=== PATIENT | male | born 1965 | race Caucasian/White ===

== ENCOUNTER 2025-01-31 18:23 | Emergency (ER) | payer OTHER, SELFPAY ==
--- OUTSIDE RECORDS SUMMARY | 2025-01-31 18:25 | XMS_ITS | Clinical Summary ---
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 Immunizations Immunization Administration Dates Next Due Influenza, Quadrivalent, Eliza l Culture-based MDCK, Preservative Free, Antibiotic Free, Intramuscular 10/11/2022 Family History Medical History Relation Name Comments Stroke Brother Stroke Mother Relation Name Status Comments Brother Mother Social History Tobacco Use Types Packs/Day Years Used Date Smoking Tobacco: Never Smokeless Tobacco: Never Tobacco Cessation:Counseling Given: Not Answered Personal Safety Answer Date Recorded Getting School Help Needed Not on file 10/26 Sex and Gender Information Value Date Recorded Sex Assigned at Not on file Legal Sex Male 9:47 AM CDT Gender Identity Not on file Sexual Orientation Not on file Obstetrics History Last Filed Vital Signs Vital Sign Reading Time Taken Comments Blood Pressure 163/94 10/11/2022 12:50 PM UNCRATER Pulse 76 10/11/2022 12:50 PM UNCRATER Temperature 36.7 C (98.1 F) 10/11/2022 12:50 PM UNCRATER Respiratory Rate 18 10/11/2022 12:50 PM UNCRATER Oxygen Saturation 97% 10/11/2022 12:50 PM UNCRATER Inhaled Oxygen Concentration - - Weight 108.9 kg (240 lb) 10/11/2022 12:50 PM UNCRATER Height 175.3 cm (5' 9 ) 10/11/2022 12:50 PM UNCRATER Body Mass Index 35.44 10/11/2022 12:50 PM UNCRATER Plan of Treatment Health Maintenance Due Date Last Done Comments Colon Cancer Screening-Colonoscopy 1964 Depression Screening 1964 Hepatitis C Screening 1964 Prostate Cancer Screening-PSA 1964 DTaP/Tdap/Td Vaccine (1 - Tdap) 1975 Hepatitis B Screening 1982 Regular Well Visit/Exam 18-64 1982 Zoster Vaccine (1 of 2) 2014 Influenza Vaccine (Season Ended) 2025 10/11/20 22 Pneumococcal vaccine <65 Aged Out No longer eligible based on patient's age to [place] [address] [place] [address] [email or web address] Care Teams Head Sulfide Operator Relationship Specialty Start Date End Date No, Physician PCP - General 10/01/22
--- OUTSIDE RECORDS SUMMARY | 2025-01-31 18:25 | XMS_ITS | Referral Summary ---
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 Immunizations Immunization Administration Dates Next Due Influenza, Quadrivalent, Eliza l Culture-based MDCK, Preservative Free, Antibiotic Free, Intramuscular 10/11/2022 Social History Tobacco Use Types Packs/Day Years Used Date Smoking Tobacco: Never Smokeless Tobacco: Never Tobacco Cessation:Counseling Given: Not Answered Personal Safety Answer Date Recorded Getting School Help Needed Not on file 10/26 Sex and Gender Information Value Date Recorded Sex Assigned at Not on file Legal Sex Male 9:47 AM CDT Gender Identity Not on file Sexual Orientation Not on file Last Filed Vital Signs Vital Sign Reading Time Taken Comments Blood Pressure 163/94 10/11/2022 12:50 PM LIBRARY HISTORIAN Pulse 76 10/11/2022 12:50 PM LIBRARY HISTORIAN Temperature 36.7 C (98.1 F) 10/11/2022 12:50 PM LIBRARY HISTORIAN Respiratory Rate 18 10/11/2022 12:50 PM LIBRARY HISTORIAN Oxygen Saturation 97% 10/11/2022 12:50 PM LIBRARY HISTORIAN Inhaled Oxygen Concentration - - Weight 108.9 kg (240 lb) 10/11/2022 12:50 PM LIBRARY HISTORIAN Height 175.3 cm (5' 9 ) 10/11/2022 12:50 PM LIBRARY HISTORIAN Body Mass Index 35.44 10/11/2022 12:50 PM LIBRARY HISTORIAN Plan of Treatment Not on file Insurance CIGNA CIGNA Care Teams Pe Manager Relationship Specialty Start Date End Date No, Physician PCP - General 10/01/22
--- OUTSIDE RECORDS SUMMARY | 2025-01-31 18:25 | XMS_ITS ---
Author Organization [facility] Address [address] [address] Care Team Providers Care Photolith Operator Name Role Phone Isha LÓPEZ, Claudio Primary Care Provider Mattie VASQUEZ, Allyson Unavailable [phone] ALLERGIES Allergen (clinical drug ingredient) Drug/Non Drug Allergy documented on EMR Reaction Allergy Type Onset Date Status guaifenesin Mucinex Hives, anaphylac tic shock Drug Allergy Active Bee venom (uncoded) Hives, anaphylactic shock Allergy Active REASON FOR VISIT left knee SOCIAL HISTORY Tobacco Use: Social History Observation Description Date Details (start date - stop date) Never Smoker NA - NA Sex Assigned At : Social History Observation Description Sex Assigned At Unknown Tobacco Use: Question Answer Notes Patient is a: nonsmoker Alcohol screening: Question Answer Notes Did you have a drink containing alcohol in the p ast year? No Points 0 Interpretation Negative VITAL SIGNS Blood pressure systolic 141 mm Hg 03/29/20 24 Blood pressure diastolic 73 mm Hg 024 Heart Rate 70 /min 03/29/2024 Height 72 in 03/29/2024 Weight 235 lbs 03/29/2024 BMI 31.87 kg/m2 03/29/2024 Encounters Encounter Location Date Provider Diagnosis [facility] [address] [address] 03/29/2024 Allyson VASQUEZ Encounter for orthopedic follow-up care Z47.89 ; Other tear of medial meniscus, current injury, left knee, subsequent encounter S83.242D ; Other tear of lateral meniscus, current injury, left knee, subsequent encounter S83.282D and Encounter for removal of sutures Z48.02 ASSESSMENTS Encounter Date Diagnosis Assessment Notes Treatment Notes Treatment Clinical Notes 03/29/2024 Encounter for orthopedic follow-up care (ICD-10 - Z47.89) 03/29/2024 Other tear of medial meniscus, current injury, left knee, subsequent encounter (ICD-10 - S83.242D) 03/29/2024 Other tear of lateral meniscus, current injury, left knee, subsequent encounter (ICD-10 - S83.282D) 03/29/2024 Encounter for removal of sutures (ICD-10 - Z48.02) PLAN OF TREATMENT No Information History and Physical Notes * HPI (History of Present Illness) Category Sub-Category Detail Notes Depression Screening PHQ-2 (2015 Edition) Little interest or pleasure in doing things?: Not at all Feeling down, depressed, or hopeless?: N ot at all Total Score: 0
--- OUTSIDE RECORDS SUMMARY | 2025-01-31 18:25 | XMS_ITS | CONTINUITY OF CARE DOCUMENT ---
Author Name shirley watson Address Unknown Organization [facility] Address [address] [place] [address] [address] [place] [address] Phone [phone] Care Team Providers Care Produce Assistant Name Role Phone Addi Shannon MD Unavailable [phone] Addi Shannon MD Unavailable [phone] PROBLEMS Condition Status Date Provider Notes Cardiology examination active Addi Lemus COVID-19 active Addi Shannon MD SOB active Addi Shannon MD Obesity active Addi Shannon MD Leg numbness, right active Addi Shannon MD Pulmonary embolism active Addi Shannon MD Aortic stenosis, mild active Sanjuana chester ENCOUNTERS Date Type Provider Location Encounter Diag nosis - In-person encounter Office Visit Addi Shannon MD [facility] - In-person encounter Office Visit Addi Shannon MD [facility] Aortic stenosis, mild - In-person encounter Office Visit Addi Shannon MD [facility] Cardiology [id number] ObesityLeg numbness, rightPulmonary embolism VITAL SIGNS Date Observation Value Provider Body Mass Index (Ratio) 31.60 kg/m2 Mae Briggs blood pressure, diastolic 91 mm[Hg] St david Vargas blood pressure, systolic 144 mm[Hg] Tish Vargas oxygen saturation, oximetry 96 % Addis Vargas pulse rate 73 /min Addis Vargas respiratory rate E&M 18 /min Addis Mariah conley weight E&M 233 [lb_av] Addis Vargas height E&M 72 [in_i] Addis Vargas Body Mass Index (Ratio) 32.55 kg/m2 Ana Laura Arroyo blood pressure, diastolic 90 mm[Hg] Ri bryant Pratt blood pressure, systolic 137 mm[Hg] Christopher robb Pratt blood pressure, cuff size large Concepcion Pratt oxygen saturation, oximetry 93 % Marcia Pratt respiratory rate E&M 16 /min Chula Pratt pulse rate 83 /min Marcia partida weight E&M 240 [lb_av] Marcia Garcia son height E&M 72 [in_i] Marcia Garcia son Body Mass Index (Ratio) 32.95 kg/m2 Ana Laura Arroyo blood pressure, cuff size large Ke asael Gonsales blood pressure, diastolic 66 mm[Hg] Ke rrdebora Carrionueneyielder blood pressure, systolic 126 mm[Hg] Angelica concepcion Navaer oxygen saturation, oximetry 97 % Claire Navaer respiratory rate E&M 16 /min Claire coxer pulse rate 82 /min Claire Heartnfe lder weight E&M 243 [lb_av] Claire Andersone lder height E&M 72 [in_i] Claire Skyenenfe lder RESULTS Date Observation Value Provider Reference Range Interpretation Location NT-pro BNP 29 [employer] Normal cholesterol, non-HDL, total 190 MG/DL ([facility]) [facility] <130 High cholesterol/HDL ratio, serum, percent 5.9 (calc) [facility] <5.0 High LDL cholesterol, serum 152 MG/DL ([facility]) [facility] High triglyceride, serum, fasting 212 mg/dL [facility] <150 High HDL cholesterol, serum 39 mg/dL [facility] > OR = 40 Low cholesterol, serum 229 mg/dL [facility] <200 High creatinine, serum 1.05 mg/dL [facility] 0.70-1.30 Norm al HISTORY OF MEDICATION USE Medication Status Instructions Dates Provider Indications Com ments Crestor 20 mg tablet active Take 1 tablet by mouth once a day Addi Shannon MD SOCIAL HISTORY Date Observation Value Provider social history E&M S moking History: Bobby hammer has never smoked. Rosanne Chester social history reviewed E&M revi ewed - no changes required Rosanne Briggs smoking status Never smoker Addis Sam social history E&M S moking History: Bobby hammer has never smoked. Addi Shannon MD social history reviewed E&M revi ewed - no changes required Addi Shannon MD smoking status Never smoker Marcia Martha hernandezlemuel social history E&M S moking History: Bobby hammer has never smoked. Addi Shannon MD social history reviewed E&M revi ewed - no changes required Addi Shannon MD smoking status Never smoker Claire gillespie INSURANCE PROVIDERS Payer name Policy type / Coverage type [employer] [place] [employer] ID CIGNA [employer] [id number] ADVANCE DIRECTIVES Name Date DISCUSSED - NO DECISION MADE TREATMENT PLAN Date Name Performer [id number],S,L DL is markedly elevated and we will start crestor 20 mg daily. He still has SOB. Will obtain a stress cardiolite study. Rosanne Chualonny [id number],S,V Q scan was normal. CT angiography was negative for PE but showed interstitial marking in the right lung. Rosanne Briggs [id number],C, W eight loss advised [place] Torresaljessica [id number],C,E cho showed normal LVEF, mild aortic stenosis with calcifications and normal RV. Venous duplex was negative for DVT. PA CT angio results are pending. [place] Navaljessica [id number],S, [place] Na valta [id number],C,E cho showed normal LVEF, mild aortic stenosis with calcifications and normal RV. Venous duplex was negative for DVT. PA CT angio results are pending. Will obtain a fasting lipid panel, I recommend to keep LDL at [address] or less[address] If the CT is negative, we'll consider a Vicu scan. Addi Shannon MD [id number],C,T he pt had Covid in Jul 2021, was hospitalized for 40 days in [facility] (he was told he needed intubation but refused). He was diagnosed with PE and treated with Eliquis until Nov 2021. He complains of SOB with minimal exertion, no CP. Also numbness in the right foot. In addition CT showed coronary calcifications. He has appointment with health claims examiner at [facility] for PFTs. Will obtain pulmonary angio (PE protocol), echo, arterial duplex, and venous duplex. Sanjuana Mendezdaina [id number],C,W eight loss advised Sanjuana Rodriguezalvaro [id number],C, Also numbness in the right foot.Will obtain pulmonary angio (PE protocol), echo, arterial duplex, and venous duplex. Sanjuanasusanna Mendezdaina [id number],C,T he pt had Covid in Jul 2021, was hospitalized for 40 days in [facility] (he was told he needed intubation but refused). He was diagnosed with PE and treated with Eliquis until Nov 2021. He complains of SOB with minimal exertion, no CP. Also numbness in the right foot. In addition CT showed coronary calcifications. He has appointment with health claims examiner at [facility] for PFTs. Will obtain pulmonary angio (PE protocol), echo, arterial duplex, and venous duplex. Sanjuana Arroyo Cardiology:LDL is ma rkedly elevated and we will start crestor 20 mg daily. He still has SOB. Will obtain a stress cardiolite study. Rosanne Briggs Cardiology:VQ scan w as normal. CT angiography was negative for PE but showed interstitial marking in the right lung. Rosanne Briggs Cardiology: W eight loss advised [place] Torresalta Cardiology:Echo show ed normal LVEF, mild aortic stenosis with calcifications and normal RV. Venous duplex was negative for DVT. PA CT angio results are pending. [place] Navalta Cardiology [place] Navalt a Cardiology:Echo show ed normal LVEF, mild aortic stenosis with calcifications and normal RV. Venous duplex was negative for DVT. PA CT angio results are pending. Will obtain a fasting lipid panel, I recommend to keep LDL at [address] or [address] If the CT is negative, we'll consider a Vicu scan. Addi Shannon MD Cardiology:The pt yareli Davison in Jul 2021, was hospitalized for 40 days in [facility] (he was told he needed intubation but refused). He was diagnosed with PE and treated with Eliquis until Nov 2021. He complains of SOB with minimal exertion, no CP. Also numbness in the right foot. In addition CT showed coronary calcifications. He has appointment with health claims examiner at [facility] for PFTs. Will obtain pulmonary angio (PE protocol), echo, arterial duplex, and venous duplex. Sanjuana Arroyo Cardiology:Weight lo ss advised Sanjuana Arroyo Cardiology: Also num bness in the right foot.Will obtain pulmonary angio (PE protocol), echo, arterial duplex, and venous duplex. Sanjuana Arroyo Cardiology:The pt yareli Davison in Jul 2021, was hospitalized for 40 days in [facility] (he was told he needed intubation but refused). He was diagnosed with PE and treated with Eliquis until Nov 2021. He complains of SOB with minimal exertion, no CP. Also numbness in the right foot. In addition CT showed coronary calcifications. He has appointment with health claims examiner at [facility] for PFTs. Will obtain pulmonary angio (PE protocol), echo, arterial duplex, and venous duplex. Sanjuana Arroyo Date Name Stress Exercise Card iolite PROBNP, N TERMINAL LIPID PANEL Creatinine, Serum CT Angio Chest (PE P rotocol) Arterial Duplex Bi-L ower EX Venous Doppler Bilat eral LE - Reflux Complete Echo HISTORY OF PROCEDURES Procedure Date Procedure Name Provider Procedure Notes S jacksonus EKG Addi Shannon MD completed
--- OUTSIDE RECORDS SUMMARY | 2025-01-31 18:25 | XMS_ITS ---
Author Organization [email or web address] Address [address] [address] Care Team Providers Care Customer Care Team Coach Name Role Phone Isha LÓPEZ, Claudio Primary Care Provider ALLERGIES Allergen (clinical drug ingredient) Drug/Non Drug Allergy documented on EMR Reaction Allergy Type Onset Date Status guaifenesin Mucinex Hives, anaphylac tic shock Drug Allergy Active Bee venom (uncoded) Hives, anaphylactic shock Allergy Active REASON FOR VISIT lt knee SOCIAL HISTORY Tobacco Use: Social History [...] ast year? No Points 0 Interpretation Negative PROBLEMS Problem Type ICD Code Onset Dates Problem Status W/U Status Risk SNOMED Code Notes Problem Localized osteoarthritis of left knee (M17.12) Active confirmed [id number] VITAL SIGNS Height 72 in 06/11/2024 Weight 235 lbs 06/11/2024 BMI 31.87 kg/m2 06/11/2024 Encounters Encounter Location Date Provider Diagnosis [email or web address] [address] [address] 06/11/2024 Claudio Vieira MD Localized osteoarthritis of left knee M17.12 ASSESSMENTS Encounter Date Diagnosis Assessment Notes Treatment Notes Treatment Clinical Notes 06/11/2024 Localized osteoarthritis of left knee (ICD-10 - M17.12) PLAN OF TREATMENT No Information History and Physical Notes * HPI (History of Present Illness) Category Sub-Category Detail Notes Depression Screening PHQ-2 (2015 Edition) Little interest or pleasure in doing things?: Not at all Feeling down, depressed, or hopeless?: N ot at all Total Score: 0
--- OUTSIDE RECORDS SUMMARY | 2025-01-31 18:26 | XMS_ITS ---
Author Organization [facility] Address [address] [facility] [place] [address] Care Team Providers Care Plate Mill Hand Name Role Phone Isha LÓPEZ, Claudio Primary Care Provider Mattie VASQUEZ, Allyson Unavailable [phone] ALLERGIES Allergen (clinical drug ingredient) Drug/Non Drug Allergy documented on EMR Reaction Allergy Type Onset Date Status guaifenesin Mucinex Hives, anaphylac tic shock Drug Allergy Active Bee venom (uncoded) Hives, anaphylactic shock Allergy Active SOCIAL HISTORY Tobacco Use: Social History Observation Description Date Details (start date - stop date) Never Smoker NA - NA Sex Assigned At : Social History Observation Description Sex Assigned At Unknown Tobacco Use: Question Answer Notes Patient is a: nonsmoker Alcohol screening: Question Answer Notes Did you have a drink containing alcohol in the p ast year? No Points 0 Interpretation Negative Encounters Encounter Location Date Provider Diagnosis [facility] [address] [address] 03/19/2024 Allyson VASQUEZ PLAN OF TREATMENT No Information History and Physical Notes * HPI (History of Present Illness) Category Sub-Category Detail Notes Depression Screening PHQ-2 (2015 Edition) Little interest or pleasure in doing things?: Not at all Feeling down, depressed, or hopeless?: N ot at all Total Score: 0
[2025-01-31 18:29] VITALS: BP 119/79; PULSE 58; RESP 18; TEMP 37.2; O2SAT 95
[2025-01-31 18:59] VITALS: O2SAT 95
[2025-01-31] MEDS: EPINEPHrine HCL INJ 1 MG/ML AMPUL 0.3 MG IM (19:12)
--- OUTSIDE RECORDS SUMMARY | 2025-01-31 19:21 | XMS_ITS | Clinical Summary ---
Author Organization [facility] Address [address] [place] [address] Care Team Providers Care Retail Gift Card Merchandising Name Role Phone No, Physician Primary Care Provider [phone] Allergies Active Allergy Reactions Criticality Noted Date Comments Guaifenesin Hives,Shortness of breath High Medications No known medications Active Problems Problem Noted Date Diagnosed Date Dyspnea 10/18/2022 [id number] syndrome manifesting as chronic dy spnea Immunizations [...] Comments Blood Pressure 163/94 10/11/2022 12:50 PM OSD CLERK Pulse 76 10/11/2022 12:50 PM OSD CLERK Temperature 36.7 C (98.1 F) 10/11/2022 12:50 PM OSD CLERK Respiratory Rate 18 10/11/2022 12:50 PM OSD CLERK Oxygen Saturation 97% 10/11/2022 12:50 PM OSD CLERK Inhaled Oxygen Concentration - - Weight 108.9 kg (240 lb) 10/11/2022 12:50 PM OSD CLERK Height 175.3 cm (5' 9 ) 10/11/2022 12:50 PM OSD CLERK Body Mass Index 35.44 10/11/2022 12:50 PM OSD CLERK Plan of Treatment Health Maintenance Due Date [...] patient's age to complete [place] [address] [place] [address] [employer] Care Teams Retail Gift Card Merchandising Relationship Specialty Start Date End Date No, Physician PCP - General 10/01/22
--- OUTSIDE RECORDS SUMMARY | 2025-01-31 19:21 | XMS_ITS | Referral Summary ---
Author Organization [facility] Address [address] [place] [address] Care Team Providers Care Automotive Parts Advisor Name Role Phone No, Physician Primary Care Provider [phone] Allergies Active Allergy Reactions Criticality Noted Date Comments Guaifenesin Hives,Shortness of breath High Medications No known medications Active Problems Problem Noted Date Diagnosed Date Dyspnea 10/18/2022 [id number] syndrome manifesting as chronic dy spnea Immunizations [...] Comments Blood Pressure 163/94 10/11/2022 12:50 PM POTATO PEELING MACHINE OPERATOR Pulse 76 10/11/2022 12:50 PM POTATO PEELING MACHINE OPERATOR Temperature 36.7 C (98.1 F) 10/11/2022 12:50 PM POTATO PEELING MACHINE OPERATOR Respiratory Rate 18 10/11/2022 12:50 PM POTATO PEELING MACHINE OPERATOR Oxygen Saturation 97% 10/11/2022 12:50 PM POTATO PEELING MACHINE OPERATOR Inhaled Oxygen Concentration - - Weight 108.9 kg (240 lb) 10/11/2022 12:50 PM POTATO PEELING MACHINE OPERATOR Height 175.3 cm (5' 9 ) 10/11/2022 12:50 PM POTATO PEELING MACHINE OPERATOR Body Mass Index 35.44 10/11/2022 12:50 PM POTATO PEELING MACHINE OPERATOR Plan of Treatment Not on file Insurance CIGNA CIGNA Care Teams Automotive Parts Advisor Relationship Specialty Start Date End Date No, Physician PCP - General 10/01/22
--- OUTSIDE RECORDS SUMMARY | 2025-01-31 19:21 | XMS_ITS | Patient Health Record ---
Author Organization [facility] Address [address] [place] [address] Care Team Providers Care Lather Apprentice Name Role Phone Isha LÓPEZ, Claudio Primary Care Provider Mattie VASQUEZ, Allyson Unavailable [phone] ALLERGIES Allergen (clinical drug ingredient) Drug/Non Drug Allergy documented on EMR Reaction Allergy Type Onset Date Status guaifenesin Mucinex Hives, anaphylac tic shock Drug Allergy Active Bee venom (uncoded) Hives, anaphylactic shock Allergy Active RESULTS Component Value Reference Range Notes MRI : Knee, left Reviewed date:02/19/2024 10:51:42 AM Interpretation: Performing Lab: Notes/Report: EKG, BMP Reviewed date:03/03/2024 11:10:28 AM Interpretation: Performing Lab: Notes/Report: REASON FOR REFERRAL No Information SOCIAL HISTORY Tobacco Use: Social History Observation [...] W/U Status Risk SNOMED Code Notes Problem Pain, joint, knee, left (M25.562) 01/13/20 24 Active confirmed [id number] Problem Essential (primary) hypertension (I10) Active confirmed 37212837 Problem Effusion, left knee (M25.462) 01/13/20 24 Active confirmed 982494964842574 Problem Tear of medial meniscus of left knee, current, unspecified tear type, initial encounter (S83.242A) 01/13/20 24 Active confirmed 710169174 Problem Tear of lateral meniscus of left knee, current, unspecified tear type, initial encounter (S83.282A) 01/13/20 24 Active confirmed 695814534 Problem Localized osteoarthritis of left knee (M17.12) Active confirmed 285748170898160 VITAL SIGNS Heart Rate 70 /min 03/29/2024 Blood pressure diastolic 73 mm Hg 03/29/2024 Height 72 in 06/11/2024 Blood pressure systolic 141 mm Hg 03/29/2024 Weight 235 lbs 06/11/2024 BMI 31.87 kg/m2 06/11/2024 Encounters Encounter Location Date Provider Diagnosis [address], [place] [address] 03/19/2024 Allyson VASQUEZ [address] [address] 02/13/2024 Claudio Vieira MD Pain, joint, knee, left M25.562 and Effusion, left knee M25.462 [facility] [address] [place] [address] 03/05/2024 Claudio Vieira MD Tear of medial meniscus of left knee, current, unspecified tear type, initial encounter S83.242A and Tear of lateral meniscus of left knee, current, unspecified tear type, initial encounter S83.282A [address], [place] [address] 03/29/2024 Allyson VASQUEZ Encounter for orthopedic follow-up care Z47.89 ; Other tear of medial meniscus, current injury, left knee, subsequent encounter S83.242D ; Other tear of lateral meniscus, current injury, left knee, subsequent encounter S83.282D and Encounter for removal of sutures Z48.02 [place] [address], [place] [address] 06/11/2024 Claudio Vieira MD Localized osteoarthritis of left knee M17.[address], [place] [address] 02/13/2024 Claudio Vieira MD [facility] [address] [place] [address] 02/19/2024 Claudio Vieira MD [facility] [address] [place] [address] 02/24/2024 Claudio Vieira MD ASSESSMENTS Encounter Date Diagnosis Assessment Notes Treatment Notes Treatment Clinical Notes 02/13/2024 Pain, joint, knee, left (ICD-10 - M25.562) 03/05/2024 Tear of medial meniscus of left knee, current, unspecified tear type, initial encounter (ICD-10 - S83.242A) 03/29/2024 Other tear of medial meniscus, current injury, left knee, subsequent encounter (ICD-10 - S83.242D) 03/29/2024 Encounter for orthopedic follow-up care (ICD-10 - Z47.89) 06/11/2024 Localized osteoarthritis of left knee (ICD-10 - M17.12) 02/13/2024 Effusion, left knee (ICD-10 - M25.462) 03/05/2024 Tear of lateral meniscus of left knee, current, unspecified tear type, initial encounter (ICD-10 - S83.282A) 03/29/2024 Other tear of latera l meniscus, current injury, left knee, subsequent encounter (ICD-10 - S83.282D) 03/29/2024 Encounter for remova l of sutures (ICD-10 - Z48.02) PLAN OF TREATMENT No Information Insurance Providers Payer Name Payer Address Payer Phone Subscriber Number Group Number Insured Name Patient Relationship to Insured Coverage Start Date Coverage End Date [employer] [address] [place] [address] [phone] [id number] Juan Antonio Hunter Self - patient is the insured MEDICAL (GENERAL) HISTORY Medical History History ICD Code High Cholesterol Surgical History Surgery Date(Month/Year) left knee arthroscopy with PMM and PLM ( [employer]) 03/05/24 Appendicectomy 1987 Repair of reducible inguinal hernia 1987 Repair of reducible inguinal hernia 2005
--- OUTSIDE RECORDS SUMMARY | 2025-01-31 19:21 | XMS_ITS | CONTINUITY OF CARE DOCUMENT ---
Author Name shirley watson Address Unknown Organization [facility] Address [address] [place] [address] [address] [place] [address] Phone [phone] Care Team Providers Care Wafer Polishing Worker Name Role Phone Addi Shannon MD Unavailable [phone] Addi Shannon MD Unavailable [phone] PROBLEMS Condition Status Date Provider Notes Cardiology examination active Addi Lemus COVID-19 active Addi Shannon MD SOB active Addi Shannon MD Obesity active Addi Shannon MD Leg numbness, right active Addi Shannon MD Pulmonary embolism active Addi Shannon MD Aortic stenosis, mild active Sanjuana chester ENCOUNTERS Date Type Provider Location Encounter Diag nosis - In-person encounter Office Visit Addi Shannon MD [facility] - In-person encounter Office Visit Addi Shannon MD [facility] Aortic stenosis, mild - In-person encounter Office Visit Addi Shannon MD [facility] Cardiology examinationCOVID-19SOB ObesityLeg numbness, rightPulmonary embolism [...] Payer name Policy type / Coverage type [place] red green party ID [id number] [id number] ADVANCE DIRECTIVES Name Date DISCUSSED - NO DECISION MADE TREATMENT PLAN Date Name Performer [id number],S,L DL is markedly elevated and we will start crestor 20 mg daily. He still has SOB. Will obtain a stress cardiolite study. Rosanne Chualonny [id number],S,V Q scan was normal. CT angiography was negative for PE but showed interstitial marking in the right lung. Rosanne Briggs [id number],C, W eight loss advised [place] Torresaljessica [id number],C,E cho showed normal LVEF, mild aortic stenosis with calcifications and normal RV. Venous duplex was negative for DVT. PA CT angio results are pending. [place] Navaljessica [id number],S, [place] Na valta [id number],C,E cho showed normal LVEF, mild aortic stenosis with calcifications and normal RV. Venous duplex was negative for DVT. PA CT angio results are pending. Will obtain a fasting lipid panel, I recommend to keep LDL at [address] or [address] If the CT is negative, we'll consider a Vicu scan. Addi hSannon MD [id number],C,T he pt had Covid in Jul 2021, was hospitalized for 40 days in [facility] (he was told he needed intubation but refused). He was diagnosed with PE and treated with Eliquis until Nov 2021. He complains of SOB with minimal exertion, no CP. Also numbness in the right foot. In addition CT showed coronary calcifications. He has appointment with customer support executive at [facility] for PFTs. Will obtain pulmonary angio (PE protocol), echo, arterial duplex, and venous duplex. Sanjuana Mendezdaina [id number],C,W eight loss advised Sanjuana Rodriguezalvaro [id number],C, Also numbness in the right foot.Will obtain pulmonary angio (PE protocol), echo, arterial duplex, and venous duplex. Sanjuanasusanna Mendezdaina [id number],C,T he pt had Covid in Jul 2021, was hospitalized for 40 days in [facility] (he was told he needed intubation but refused). He was diagnosed with PE and treated with Eliquis until Nov 2021. He complains of SOB with minimal exertion, no CP. Also numbness in the right foot. In addition CT showed coronary calcifications. He has appointment with customer support executive at [facility] for PFTs. Will obtain pulmonary angio (PE [...] 2021, was hospitalized for 40 days in [facility] (he was told he needed intubation but refused). He was diagnosed with PE and treated with Eliquis until Nov 2021. He complains of SOB with minimal exertion, no CP. Also numbness in the right foot. In addition CT showed coronary calcifications. He has appointment with customer support executive at [facility] for PFTs. Will obtain pulmonary angio (PE protocol), echo, arterial duplex, and venous duplex. Sanjuana Arroyo Cardiology:Weight lo ss advised Sanjuana Arroyo Cardiology: Also num bness in the right foot.Will obtain pulmonary angio (PE protocol), echo, arterial duplex, and venous duplex. Sanjuana Arroyo Cardiology:The pt yareli Davison in Jul 2021, was hospitalized for 40 days in [facility] (he was told he needed intubation but refused). He was diagnosed with PE and treated with Eliquis until Nov 2021. He complains of SOB with minimal exertion, no CP. Also numbness in the right foot. In addition CT showed coronary calcifications. He has appointment with customer support executive at [facility] for PFTs. Will obtain pulmonary angio (PE [...]
[2025-01-31] MEDS: diphenhydrAMINE HCl INJ 50 MG/ML VIAL 25 MG IV PUSH (19:27)
[2025-01-31] MEDS: FAMOTIDINE 20 MG/2 ML VIAL IV PUSH (19:27)
[2025-01-31] MEDS: methylPREDNISolone SOD SUCC 125 MG VIAL IV PUSH (19:27)
[2025-01-31 19:45] VITALS: BP 139/97; PULSE 94; RESP 22; O2SAT 97
[2025-01-31 19:51] VITALS: PULSE 94; O2SAT 97
[2025-01-31 20:14] VITALS: O2SAT 97
--- NOTE | 2025-01-31 20:41 | ED.ALLEREA ---
HPI - Allergic Reaction General Chief complaint: Allergic Reaction Stated complaint: Shortness of breath, +Covid Time Seen by Provider: 01/31/25 19:08 Source: patient Mode of arrival: ambulatory Limitations: no limitations History of Present Illness HPI narrative: 59-year-old otherwise healthy here with the complaints of allergic reaction and rash which started few hours ago while he was walking. He also complained of mild shortness of breath. Denies any chest pain . Not started on any new medication on use new detergent. complaint: allergic reaction Onset (ago): hour(s) (1) Exposure: unknown Symptoms: rash and itching Severity: moderate Previous Allergic Reaction History: none Related Data Allergies Allergy/AdvReac Type Severity Reaction Status Date / Time bee venom protein (honey bee) Allergy Intermediate Unknown Verified 01/31/25 18:25 guaifenesin (From Mucinex) Allergy Intermediate Hives Verified 01/31/25 18:25 Review of Systems Review of Systems: All systems reviewed & are unremarkable except as noted in HPI and below Constitutional: Constitutional: Reports no additional constitutional complaints Eyes: Eyes: Reports no additional eye complaints ENT: Reports system reviewed and no additional complaints, except as documented Cardiovascular: Cardiovascular: Reports no additional cardiovascular complaints Respiratory: Respiratory: Reports no additional respiratory complaints Integumentary/Breasts: Skin/Breast: Reports as per HPI Neurologic: Reports system reviewed and no additional complaints, except as documented PMFSH Past Medical History Medical History Tear of meniscus of left knee History of COVID-19 Social History Social History Smoking status: Never smoker Alcohol intake: current Alcohol use details: beer Substance use: never Current Housing: Decline to Answer Concerned About Future Housing: Decline to Answer Difficulty Paying Gas/Electric Bills: Decline to Answer Difficulty Paying for Meds: Decline to Answer Currently Unemployed: Decline to Answer Education: Decline to Answer Difficulty w/ Childcare or Family Care: Decline to Answer Exam Narrative: GENERAL: Well-appearing, well-nourished, and in no acute distress. HEAD: Normocephalic, atraumatic. EYES: PERRLA and EOMI. ENT: Nares clear, no rhinorrhea or epistaxis. Mucous membranes moist. No sign of angioedema NECK: Supple. CHEST: Clear to auscultation. No respiratory distress. HEART: Regular rate and rhythm. No murmur heard. Normal peripheral pulses. ABDOMEN: Soft, nontender, nondistended, normal active bowel sounds. EXTREMITIES: Normal range of motion. No edema. SKIN: Warm, dry has diffuse hives an erythematous rash NEURO: No focal deficits. Alert and oriented x3. PSYCH: Normal mood and affect. Course Course Emergency Course: Patient started improving up he received epi I did give him Solu-Medrol as well as Benadryl. Observed him in the ER his feeling much better the rash has subsided. Vital Signs Vital signs: Vital Signs Temperature 37.2 C 01/31/25 18:29 Pulse Rate 58 L 01/31/25 18:29 Respiratory Rate 18 01/31/25 18:29 Blood Pressure 119/79 01/31/25 18:29 Pulse Oximetry 95 01/31/25 18:29 Oxygen Delivery Room Air 01/31/25 18:29 Temperature 37.2 C 01/31/25 18:29 Pulse Rate 94 01/31/25 19:51 Respiratory Rate 22 H 01/31/25 19:45 Blood Pressure 139/97 H 01/31/25 19:45 Pulse Oximetry 97 01/31/25 20:14 Oxygen Delivery Room Air 01/31/25 20:14 Oxygen Flow Rate 2 01/31/25 18:59 Discharge Plan Discharge Clinical Impression: Allergic reaction Qualifiers: Encounter type: initial encounter Qualified Code(s): T78.40XA - Allergy, unspecified, initial encounter Patient Disposition: Home Condition: Stable Instructions: Allergies (ED) Patient Language: Ecuadorean Prescriptions: New prednisone 20 mg tablet 20 mg PO BID Qty: 10 0RF No Action Paxlovid 300 mg (150 mg x 2)-100 mg tablets,dose pack See Rx Instructions PO .COMPLEX Qty: 30 0RF Rx Instructions: take TWO 150 mg tablets of nirmatrelvir with ONE 100 mg tablet of ritonavir twice daily for 5 days PO albuterol sulfate [Ventolin HFA] 90 mcg/actuation HFA aerosol inhaler 1 inh inhalation Q4H PRN (Reason: shortness of breath or wheezing) Qty: 25.5 0RF benzonatate 100 mg capsule 100 mg PO TID Qty: 21 0RF Follow-up/Referrals: Geraldo George MD [Primary Care Provider] - Time of Disposition: 20:46
[2025-01-31 21:40] VITALS: BP 147/87; PULSE 93; RESP 24; O2SAT 95
== END 2025-01-31 21:17 | disposition home or self-care (01) ==
PROVIDERS: Emergency Provider Family Medicine; PCP Emergency Medicine
DX: T78.40XA Allergy, unspecified, initial encounter (principal); X58.XXXA Exposure to other specified factors, initial encounter; Z86.16 Personal history of COVID-19
CPT/HCPCS: 99283; J0171; J1200; J2919

== ENCOUNTER 2025-07-26 16:49 | Outpatient (RCR) | payer OTHER, SELFPAY ==
--- NOTE | 2025-08-18 09:23 | OPREHPOC ---
Outpatient Therapy Plan of Care This is a Multidisciplinary Plan of Care that may contain components documented by all disciplines (PT, OT, and ST.) PT Problem 1 PT Problem #1 Knowledge Deficit PT Goal 1 Goal / Goal Update inependent and compliant with HEP Target Visit 5 PT Problem 2 PT Problem #2 Pain PT Goal 1 Goal / Goal Update decrease pain at worst to 2/10 or less in the L shoulder Target Visit 10 PT Problem 3 PT Problem #3 Impaired Range of Motion PT Goal 1 Goal / Goal Update 145 degrees or better active L shoulder flex 130 degrees or better active L shoulder abd 80 degrees or better active L shoulder ER 60 degrees or better active L shoulder IR Target Visit 10 PT Problem 4 PT Problem #4 Impaired Strength PT Goal 1 Goal / Goal Update 4/5 or better L shoulder strength 4+/5 or better L elbow strength Target Visit 10 PT Problem 5 PT Problem #5 Impaired Functional Mobility PT Goal 1 Goal / Goal Update quick dash to display 40% or less functional deficits patient to lift 5lb weight to overhead shelf with the L UE patient to reach behind head to the shirt collar and behind back to the lumbar spine Target Visit 10
--- NOTE | 2025-08-18 09:23 | PTOPEVAL1 ---
Assessment and note entered by JT File, PT Evaluation Information Assessment Status Evaluation Diagnosis L RTC repair ICD-10 Condition Codes (PT) Pain in left shoulder M25.512,Encounter for other orthopedic aftercare Z47.89 Onset 05/17/2025 Subjective Information patient reports he had L RTC Repair on 05/17/2025. he reports this is his first time coming to therapy since his surgery. he reports he is struggling to do anything with the L UE. he reports he is unable to raise the arm up or reach behind him. he reports he has to use the R UE to perform all activities around the house. Reported Pain Level Pain Score 5: Self Report Assessment PT Clinical Summary mr. johnson is a 59 yo man who presents to skilled PT for rehab following L shoulder RTC repair. he displays deficits today in L shoulder and UE rom, strength, and functional use of the L UE. continued skilled PT is indicated to improve his objective/functional deficits and return to his prior level functional activity performance and quality of life. Plan of Care Interventions Electrical Stimulation,Hot Pack/Cold Pack,Manual Therapy,Neuro Re-education,Patient/Caregiver Education,Therapeutic Activities,Therapeutic Exercise PT Services Indicated Yes Treatment Frequency and 2x weekly for 10 visits Duration These treatments will address the objective and functional deficits as defined above. The patient will be advanced safely and appropriately in order for the patient to progress towards his/her prior level of function. Additional exercises will be introduced and as well as a comprehensive home exercise program upon discharge, if needed, ?to ensure carryover of functional gains achieved in the clinic. This treatment plan has been reviewed and agreement upon by the patient.
== END 2025-10-24 23:59 | disposition home or self-care (01) ==
LOC: CHSPT 16:49
DX: Z98.890 Other specified postprocedural states (principal)
CPT/HCPCS: 97014; 97110; 97161; G0283